=== PATIENT | male | born 1975 | race Caucasian/White ===

== ENCOUNTER 2023-08-31 12:02 | Inpatient (IN) | payer BC, SELFPAY ==
[2023-08-31] VITALS (8 sets, daily range): BP systolic 96–133; BP diastolic 52–79; BMI 31.0
[2023-08-31] MEDS: NSS 1000 IV ×3 (09:36→17:36)
--- NOTE | 2023-08-31 09:38 | ED.GENMED ---
History of Present Illness
General
Chief Complaint: Abdominal Symptoms
Source: patient
Exam Limitations: none
Time Seen by Provider: 08/31/23 09:05
Nursing documentation reviewed up to this point in time: agreed with
Travel History
Have you had any contact with someone who has COVID-19?: No
Do you have any symptoms of coronavirus? Fever > 100 degrees, chills, cough, shortness of breath, sore throat, loss of taste or smell, muscle aches, or headache?: No
History of Present Illness
History of Present Illness:
48 yo male presents to the emergency department c/o n/v/d. He has a history adrenal insufficiency, and has been hospitalized for similar in the past. He has not been able to hold down his medications.
Past History
Past History
ED Past Medical History: Hypothyroidism, Other (Medhat's disease ) and Other (Sleep apnea)
ED Past Surgical History: Orthopedic (Shoulder, foot)
Social History
Tobacco: Non-smoker
Alcohol: Occasional
Drug: None
Personal:
Living: with family
Employment: Employed
Family History
Family History: Hypertension
Review of Systems
Review of Systems
Allergies reviewed?: Yes
All Other Systems: Not applicable
Constitutional: Reports no symptoms
EENT: Reports no symptoms
Respiratory: Reports no symptoms
Cardiac: Reports no symptoms
ABD/GI: Reports nausea, vomiting and diarrhea; Denies abdominal pain
: Reports no symptoms
Musculoskeletal: Reports no symptoms
Skin: Reports no symptoms
Neurological: Reports no symptoms
Endocrine: Reports no symptoms
Hematologic/Lymphatic: Reports no symptoms
Psychiatric: Reports no symptoms
Phy Exam
Physical Exam
Physical Exam:
Physical Exam
General: Afebrile, appears uncomfortable
Neck: supple. no meningeal signs. normal posterior pharynx
Heart: s1/s2 regular rate and rhythm, no murmur. equal radial
pulses.
HEENT: Pupils equal round reactive to light, EOMI
Lungs: no acute respiratory distress. clear bilaterally
Abdomen: normal bowel sounds. not tender. no CVAT
Neuro: alert and oriented. no focal neurological deficits cranial nerves II through XII intact
Skin: no rash
Psychiatric: well kept. interactive and cooperative
Extremities: no edema. no calf tenderness. negative homans. good distal pulses
Course
Orders/Labs/Results
Orders:
Orders
08/31/23 09:25
0.9% Sodium Chloride 1000 ml [Nss] 1,000 ml IV BOLUS
08/31/23 09:34
Complete Blood Count/With Diff Urgent
Comprehensive Metabolic Panel Urgent
Cortisol, Random Urgent
Lipase Urgent
08/31/23 09:36
Hydrocortisone Sod Succinate [Solu-Cortef] 100 mg IV NOW STA
Ondansetron Injectable [Zofran] 4 mg IV NOW STA
08/31/23 10:26
STOOL [C difficile Antigen & Toxins] Urgent
BROOKE Source: Feces/Stool
Specimen Description:
Stool Culture Urgent
BROOKE Source: Feces/Stool
Specimen Description:
Abnormal Lab Results
08/31/23
09:34
MCH 31.4 H pg
(27.0-31.0)
Abs Immat Gran (auto) 0.1 H 10^3/uL
(0-0.05)
Absolute Lymphs (auto) 0.9 L 10^3/uL
(1.2-3.4)
Immature Gran % 1.3 H %
(0-0.5)
Neutrophils % 80.3 H %
(42.2-75.2)
Lymphocytes % 11.5 L %
(20.5-51.1)
Total Bilirubin 1.5 H mg/dl
(0.2-1.3)
08/31/23 09:34
08/31/23 09:34
Vital Signs
Initial and Last Documented VS:
Initial Vital Signs
Temp Pulse Resp BP Pulse Ox
98.1 F 74 18 133/79 100
08/31/23 08:46 08/31/23 08:46 08/31/23 08:46 08/31/23 08:46 08/31/23 08:46
Last Documented Vital Signs
Temp Pulse Resp BP Pulse Ox
98.1 F 83 18 110/68 98
08/31/23 08:46 08/31/23 10:29 08/31/23 10:29 08/31/23 10:29 08/31/23 10:29
MDM/Problems Addressed
Differential Diagnosis Includes:
Adrenal insufficiency, hypovolemia
MDM/Problems Addressed:
48-year-old male with adrenal insufficiency, hypovolemia. Normal saline and 100 mg of hydrocortisone given. Will admit for IV fluids and IV hydrocortisone. Patient will require admission until he is able to tolerate his own oral medication.
Chronic conditions affecting care:
Adrenal insufficiency
Acute Exacerbation and/or Progression of Chronic Illness:
Adrenal insufficiency
*Pulse Oximetry
Patient hypoxic: no
*EKG
Interpreted by ED Provider?: NA
*Qa Specialist Interpretation
Rate: Qa Specialist- N/A
*Critical Care Note
Total Time (30-74mins, 75-104mins- exclusive of procedures): Not Applicable
Data Reviewed
Review of Other/Old Records Reveals: Records (Prior admission in 2020 for nausea vomiting diarrhea and adrenal insufficiency)
Source: records
Patient Management
Social determinants of health affecting care: Living situation
Discussion with other providers: Hospitalist
Escalation/DeEscalation of care consider admission/obs:
Admit indicated
ED Attending Note
-
Portions of this chart may have been created with voice recognition software.� Occasional wrong word or��sound alike� substitutions may have occurred due to the inherent limitations of voice recognition software.
Discharge Plan
Departure
Patient Disposition: Admit
Date of Disposition: 08/31/23
Time of Disposition: 10:30
Admit to: Telemetry
Presentation/result/management discussed w/ accepting MD/DO: Hospitalist
Patient with high blood pressure during this ER visit?: Yes
Discharge Problem:
Nausea vomiting and diarrhea, Adrenal insufficiency
Prescriptions:
No Action
levothyroxine 175 MCG tablet
175 mcg PO DAILY
fludrocortisone 0.1 MG tablet
0.1 mg PO BID
calcium polycarbophil [Fiber-Tabs] 625 MG tablet
3,900 mg PO DAILY
prednisone 5 MG tablet
12.5 mg PO QPM
prednisone 5 MG tablet
5 mg PO DAILY
pregabalin 75 MG capsule
75 mg PO BID
Patient Comments:
05/25/2021: last filled 05/12/21, 60 tabs for 30 days from [facility]
Referrals:
Poli Larose MD [Family Provider] -
Interventions
Interventions:
*Risk Screen - Suicide Last Done: 08/31/23 09:34
*General Assessment Last Done: 08/31/23 09:34
*Neglect/Abuse Screening Last Done: 08/31/23 09:34
*ED COVID-19 Vaccine History Last Done: 08/31/23 09:34
VB-Pvaqlp-Eivvttncjb Assessment Last Done: 08/31/23 09:34
[2023-08-31] MEDS: ZOFRAN 4 MG IV (09:41)
[2023-08-31] MEDS: SOLU-CORTEF 100 MG IV ×3 (09:41→23:01)
[2023-08-31 09:47] LABS: % Basophils 0.4 % (0-2); % Eosinophils 1.1 % (0-6); % Immature Granulocytes 1.3 % (0-0.5); % Lymphocytes 11.5 % (20.5-51.1); % Monocytes 5.4 % (1.7-9.3); % Neutrophils 80.3 % (42.2-75.2); Absolute Eosinophils 0.1 10^3/uL (0-0.7); Absolute Immature Granulocytes 0.1 10^3/uL (0-0.05); Absolute Lymphocytes 0.9 10^3/uL (1.2-3.4); Absolute Monocytes 0.4 10^3/uL (0.1-0.6); Absolute Neutrophils 6.4 10^3/uL (1.4-6.5); Hematocrit 44.3 % (39.0-52.0); Hemoglobin 15.9 g/dL (13.0-18.0); Mean Corp Hgb Conc. 35.9 g/dL (33.0-37.0); Mean Corpuscular Hgb 31.4 pg (27.0-31.0); Mean Corpuscular Volume 87.4 fL (80.0-94.0); Mean Platelet Volume 9.3 fL (7.4-10.4); Nucleated Red Blood Cells % 0 % (-); Platelet Count 190 10^3/uL (130-400); Red Blood Cell Count 5.07 10^6/uL (4.70-6.10); Red Cell Dist. Width 12.8 % (11.5-14.5)
[2023-08-31 10:00] LABS: ALT (SGPT) 46 U/L (0-50); AST (SGOT) 44 U/L (17-59); Albumin 4.8 g/dl (3.5-5.0); Alkaline Phosphatase 83 U/L (38-126); Blood Urea Nitrogen 17 mg/dl (9-20); Calcium 9.2 mg/dl (8.4-10.2); Carbon Dioxide 23 mmol/L (22-30); Chloride 104 mmol/L (98-107); Estimated Creatinine Clearance 101 ml/min; Glucose 80 mg/dl (70-99); Lipase 59 U/L (23-300); Potassium 4.6 mmol/L (3.5-5.1); Sodium 135 mmol/L (135-145); Total Bilirubin 1.5 mg/dl (0.2-1.3); Total Protein 7.6 g/dl (6.3-8.2); eGFR > 60.00
[2023-08-31 10:29] LABS: Cortisol, Random 0.8 ug/dl
--- NOTE | 2023-08-31 11:29 | HPS.HSE ---
Family Physician
-
Family Physician: Poli Larose
Chief Complaint
-
This is a 48-year-old male developed intractable nausea vomiting and diarrhea in the last 12 hours no known contacts
History of Present Illness
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
diarrhea describing chills but does not know if he has a fever. He has been unable to take any of his medications including his steroid management and his thyroid meds. He is on maintenance prednisone twice a day along with levothyroxine and
fludrocortisone uses nightly CPAP for sleep apnea and had seizures prior to his diagnosis of sleep apnea and none since.
Medical History
Past Medical History
Past Medical History: Reports Hypothyroidism
Additional Past Medical History:
Nash's disease
Past Surgical History: Reports None
Social History
Unable to obtain full social history at this time due to: Dementia
Tobacco: Non-smoker
Alcohol: Occasional
Drug: None
Personal:
Living: With Family
Family History
Family History: Not pertinent
Allergies / Home Medications
Allergies reflects when Allergies were last updated in [employer].
Home Medications with original date entered in [employer]
Allergy/Medication List:
Allergies
Allergy/AdvReac Type Severity Reaction Status Date / Time
bee Allergy Unknown Uncoded 05/25/21 06:15
Home Medications
fludrocortisone 0.1 mg tablet 0.1 mg PO DAILY INFLAMMATION 11/13/09
calcium polycarbophil 625 mg tablet (Fiber-Tabs) 3,125 mg PO DAILY Supplement 09/23/18
prednisone 5 mg tablet 2.5 mg PO HS INFLAMMATION 05/25/21
prednisone 5 mg tablet 5 mg PO DAILY INFLAMMATION 05/25/21
levothyroxine 200 mcg tablet 200 mcg PO DAILY Thyroid 08/31/23
Review of Systems
-
History Source: Patient
A 12 point ROS was completed and negative except as noted: Yes
Constitutional: Reports See HPI
EENT: Reports See HPI
Respiratory: Reports See HPI
Physical Exam
Vital Signs
Vital Signs
Temp Pulse Resp BP Pulse Ox
98.1 F 86 18 107/64 96
08/31/23 08:46 08/31/23 11:15 08/31/23 11:15 08/31/23 11:15 08/31/23 11:15
Physical Exam
General: Well Developed
HEENT: NormoCephalic
Respiratory: Clear
Cardiac: S1/S2
GI: Soft
Skin: Warm
Neuro: Awake, Alert and Oriented
Psych: Calm
Laboratory Results
-
08/31/23 09:34
08/31/23 09:34
Laboratory Results
Total Bilirubin 1.5 mg/dl (0.2-1.3) H 08/31/23 09:34
AST 44 U/L (17-59) 08/31/23 09:34
ALT 46 U/L (0-50) 08/31/23 09:34
Alkaline Phosphatase 83 U/L (38-126) 08/31/23 09:34
Lipase 59 U/L (23-300) 08/31/23 09:34
Data Reviewed
-
Critical Care Time (in minutes): 56
Lab Data: Labs Reviewed by me (0 cortisol was 0.8 random/TSH 0.13 last measured July 07/normal white count but with left shift)
Impression/Plan
-
IMPRESSION:
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
diarrhea describing chills but does not know if he has a fever. He has been unable to take any of his medications including his steroid management and his thyroid meds. He is on maintenance prednisone twice a day along with levothyroxine and
fludrocortisone uses nightly CPAP for sleep apnea and had seizures prior to his diagnosis of sleep apnea and none since.
Acute gastroenteritis
-Presumptive viral origin
-Check norovirus and stool cultures
-Check for influenza
-Hydrate with IV fluids
History of Nash's disease
-Treat as an adrenal crisis and placed on hydrocortisone 100 mg every 8 and titrate
-Once stabilized resume prior dosing of prednisone 5 mg in a.m. and 2.5 nightly plus fludrocortisone 0.1, levothyroxine
-BP and heart rate are stable
-Vigorous hydration
-Monitor electrolytes closely
Hypothyroidism
-See if she can tolerate oral levothyroxine in next 24 hours if not placed on IV equivalent
-Check TSH had been suppressed back in June of this year
Prior history of sleep apnea
-On CPAP nightly use own
DVT prophylaxis Lovenox
Full CODE STATUS
[2023-08-31] MEDS: TYLENOL 650 MG PO ×3 (17:36→23:00)
--- NOTE | 2023-08-31 17:59 | PTCARENOTE ---
pt admitted to for this nurse at 1730. pt is aaox3, admission VSS, and is receiving IVF @ 150ml/hr through his R hand due to n/v/d episode that started this AM for this patient at home. pt is independent in the room and was given ear plugs incase
of noise. pt was oriented to call light and phone and is currently on a clear liquid diet at this time.
[2023-09-01] MEDS: NSS 1000 IV ×2 (00:52→07:48)
[2023-09-01] MEDS: TYLENOL PO ×2 (04:59→23:20)
[2023-09-01 06:11] LABS: Hematocrit 41.3 % (39.0-52.0); Mean Corp Hgb Conc. 33.9 g/dL (33.0-37.0); Mean Corpuscular Hgb 30.5 pg (27.0-31.0); Mean Platelet Volume 10.2 fL (7.4-10.4); Platelet Count 188 10^3/uL (130-400); Red Blood Cell Count 4.59 10^6/uL (4.70-6.10); Red Cell Dist. Width 12.5 % (11.5-14.5)
[2023-09-01 06:36] LABS: Blood Urea Nitrogen 14 mg/dl (9-20); Calcium 8.5 mg/dl (8.4-10.2); Carbon Dioxide 23 mmol/L (22-30); Chloride 103 mmol/L (98-107); Estimated Creatinine Clearance > 125 ml/min; Glucose 126 mg/dl (70-99); Potassium 4.6 mmol/L (3.5-5.1); Sodium 135 mmol/L (135-145); eGFR > 60.00
[2023-09-01] MEDS: SYNTHROID 200 MCG PO (06:39)
[2023-09-01 07:06] LABS: TSH 0.09 uIU/ml (0.47-4.68)
--- NOTE | 2023-09-01 07:48 | W.PN.HOSP.TC ---
Today's Communication/Plan
-
Will titrate hydrocortisone down to 50 every 8
Reduce IV fluid
Placed on brat diet
Project discharge plan for prednisone taper tomorrow
Assessment / Plan
Assessment / Plan
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
diarrhea describing chills but does not know if he has a fever.� He has been unable to take any of his medications including his steroid management and his thyroid meds.� He is on maintenance prednisone twice a day along with levothyroxine and
fludrocortisone uses nightly CPAP for sleep apnea and had seizures prior to his diagnosis of sleep apnea and none since.
Acute gastroenteritis
-Presumptive viral origin
-Check norovirus and stool cultures
-Check for influenza
-Hydrate with IV fluids
History of Medhat's disease
-Treat as an adrenal crisis and placed on hydrocortisone 100 mg every 8 and titrate
-Once stabilized resume prior dosing of prednisone 5 mg in a.m. and 2.5 nightly plus fludrocortisone 0.1, levothyroxine
-BP and heart rate are stable
-Vigorous hydration
-Monitor electrolytes closely
Hypothyroidism
-See if she can tolerate oral levothyroxine in next 24 hours if not placed on IV equivalent
-Check TSH had been suppressed back in June of this year
Prior history of sleep apnea
-On CPAP nightly use own
DVT prophylaxis Lovenox
Full CODE STATUS
Will titrate hydrocortisone down to 50 every 8
Reduce IV fluid
Placed on brat diet
Project discharge plan for prednisone taper tomorrow
Anticipated Discharge: Within 24 hours
Subjective/Interval History
-
Date of Service: September 01, 2023
Patient feeling somewhat better no nausea or vomiting overnight no diarrhea once to try some solid food does feel fatigued
Objective Data
-
Labs:
Laboratory Results
09/01/23
05:22
WBC 6.0
Hgb 14.0
Hct 41.3
Plt Count 188
Sodium 135
Potassium 4.6
Chloride 103
Carbon Dioxide 23
BUN 14
Creatinine 0.8
Glucose 126 H
Calcium 8.5
Vital Signs:
Vital Signs
Temp Pulse Resp BP Pulse Ox
97.9 F 54 16 105/69 97
08/31/23 23:17 08/31/23 23:17 08/31/23 23:17 08/31/23 23:17 08/31/23 23:17
I&O
08/31/23 09/01/23 09/02/23
06:59 06:59 06:59
Intake Total 3540 / 3540
Balance 3540 / 3540
Review of Systems
-
History Source: Patient
Constitutional: Reports Fatigue and Weakness
Abdomen/GI: Denies Nausea, Vomiting or Diarrhea
Physical Exam
-
General: Well Developed
HEENT: Normocephalic
Respiratory: Clear to Auscultation
Cardiac: Regular Rhythm
GI: Soft, Nontender and Nondistended
Psych: Calm
Data Reviewed
-
Total Time Spent with Patient (in minutes): 56
Labs: Labs Reviewed by me
[2023-09-01 07:49] VITALS: BP 135/77
[2023-09-01] MEDS: TYLENOL 650 MG PO ×4 (07:50→20:13)
[2023-09-01] MEDS: SOLU-CORTEF 50 MG IV ×3 (08:51→23:19)
--- NOTE | 2023-09-01 12:00 | CM ---
Reviewed the chart notes and spoke with the patient at the bedside. The patient resides with his spouse in a two story home with five steps to enter. The patient reports only DME is a CPAP machine. The patient reports no VN or SNF in the past.
The patient confirmed his pharmacy of choice is [facility] [address] [facility]. CM continues to be available to patient/family and is monitoring medical plan for needs at discharge.
Plan: Discharge to home when medically stable. No anticipated needs identified at this time.
[2023-09-01 15:14] VITALS: BP 122/80
[2023-09-01] MEDS: SOLU-CORTEF IV (23:17)
[2023-09-01 23:26] VITALS: BP 117/69
[2023-09-02] MEDS: TYLENOL PO ×2 (04:43→07:54)
[2023-09-02 06:40] LABS: Hematocrit 39.1 % (39.0-52.0); Hemoglobin 13.4 g/dL (13.0-18.0); Mean Corp Hgb Conc. 34.3 g/dL (33.0-37.0); Mean Corpuscular Hgb 30.7 pg (27.0-31.0); Mean Corpuscular Volume 89.7 fL (80.0-94.0); Platelet Count 189 10^3/uL (130-400); Red Blood Cell Count 4.36 10^6/uL (4.70-6.10); Red Cell Dist. Width 12.4 % (11.5-14.5); White Blood Cell Count 6.7 10^3/uL (4.8-10.8)
[2023-09-02] MEDS: SYNTHROID 200 MCG PO (06:44)
[2023-09-02 07:12] LABS: Blood Urea Nitrogen 8 mg/dl (9-20); Calcium 8.3 mg/dl (8.4-10.2); Carbon Dioxide 21 mmol/L (22-30); Chloride 109 mmol/L (98-107); Estimated Creatinine Clearance > 125 ml/min; Glucose 108 mg/dl (70-99); Sodium 136 mmol/L (135-145); eGFR > 60.00
--- NOTE | 2023-09-02 07:13 | W.DS.TRANS ---
Addendum entered and electronically signed by Louis Small MD 09/02/23 10:43:
After patient's discharge we received notice from the lab that his PCR for norovirus tested positive/I have no number to contact the patient himself his primary contact which is listed as a spouse just Bringing and could not leave a message I left a
message via voicemail to his brother with hand hygiene precautions to be taken and the lack of treatment offered and to not prepare foods to others unless a period of at least 10 days passes.
Original Note:
DC Summary - Marine [employer]
-
Discharge Instructions:
Discharge Diagnosis/Procedures Acute gastroenteritis
Adrenal insufficiency
Hypothyroidism
Diet As tolerated
Activity No restrictions
Instructions:
Stand-Alone Forms:
Changes to Home Medications: Yes
Discharge Medications:
DC Medications w/original date entered in [employer]
fludrocortisone 0.1 mg tablet 0.1 mg PO DAILY INFLAMMATION 11/13/09
calcium polycarbophil 625 mg tablet (Fiber-Tabs) 3,125 mg PO DAILY Supplement 09/23/18
prednisone 5 mg tablet 2.5 mg PO HS INFLAMMATION 05/25/21
levothyroxine 200 mcg tablet 200 mcg PO DAILY Thyroid 08/31/23
prednisone 10 mg tablet 30 mg PO DAILY Anti-inflammatory #14 tabs 09/02/23
prednisone 5 mg tablet 5 mg PO DAILY INFLAMMATION #0 tabs 09/02/23
Home Medication Changes
Prednisone taper as outlined
Pending Results: No
Total time spent discharging patient (in min): 39
[2023-09-02 07:52] VITALS: BP 114/71
[2023-09-02] MEDS: DELTASONE 30 MG PO (07:54)
--- NOTE | 2023-09-02 07:56 | PTCARENOTE ---
pt decided that since he is still feeling not back to his 'normal self' that he did not want to get the flu shot at this time despite asking for the potential to receive it during his admission. proper decline is charted in the mar. pt to be
discharged this AM after diet toleration.
--- NOTE | 2023-09-02 11:32 | W.DCSUMMARY ---
Discharge Summary
Discharge Data
Date of Admission: 08/31/23
Date of Discharge: 09/02/23
-
Pending Results: No
Hospital Course
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
diarrhea describing chills but does not know if he has a fever.� He has been unable to take any of his medications including his steroid management and his thyroid meds.� He is on maintenance prednisone twice a day along with levothyroxine and
fludrocortisone uses nightly CPAP for sleep apnea and had seizures prior to his diagnosis of sleep apnea and none since.
Patient was admitted to the medical surgical floor and placed on vigorous IV fluids placed on stress dose hydrocortisone at 100 mg every 8 hours for 24 hours and underwent assessments for stools culture and PCR for norovirus.
Gastrointestinal symptoms including nausea vomiting and diarrhea relented overnight he was slowly advanced on his diet hydrocortisone was reduced to 50 mg every 8 he has tolerated a full liquid diet and brat diet last 24 hours and graduated to a
regular diet on date of his discharge
Symptomatically is improved significantly without evidence of any heat hemodynamic compromise hypotension or signs of adrenal crisis.
A discharge plan for a prednisone taper was given to him here he states he has enough prednisone at home to undertake the tapering schedule
Of note after his discharge we received notice from the lab that his norovirus PCR came back positive
I tried reaching out to the patient's family including spouse which there was no answer and kept ringing to leave message and left finally a message with his brother with details in regards to hand hygiene ongoing for the next 10 to 14 days as the
patient could still be contagious although there is no treatment for norovirus other than supportive. Also left message that he should not prepare food for others in this time period.
Discharge Plan
-
Patient Disposition: Home (Routine Discharge)
Discharge Diagnosis/Procedures: Acute gastroenteritis secondary to norovirus
Adrenal insufficiency
Hypothyroidism
Diet: As tolerated
Activity: No restrictions
Referrals:
Poli Larose MD [Family Provider] - in less than 1 week
Additional Discharge Medication Instructions: Take prednisone 30 mg for 2 days then 20 mg for 2 days then 10 mg then back to her prior schedule
Prescriptions:
New
prednisone 10 mg Tablet
30 mg PO DAILY Qty: 14 0RF
Rx Instructions:
Take steroid taper of 30 mg for 2 days then 20 mg for 2 days then 10 mg for 2 days then back to your usual schedule
Continued
fludrocortisone 0.1 MG tablet
0.1 mg PO DAILY
Fiber-Tabs 625 MG tablet
3,125 mg PO DAILY
prednisone 5 MG tablet
2.5 mg PO HS
levothyroxine 200 mcg Tablet
200 mcg PO DAILY
prednisone 5 MG tablet
5 mg PO DAILY Qty: 0 0RF
Rx Instructions:
Take 30 mg prednisone daily for 2 days, 20 mg for 2 days then 10 mg for 2 days then back to your schedule
Discharge Orders:
Discharge Patient (As Directed); Ordered 09/02/23
Ordered By: Louis Small
Discharge Date and Time
Discharge Date/Time: 09/02/23 09:19
--- NOTE | 2023-09-02 11:46 | CM ---
Chart reviewed home no needs.
Plan; Home no needs.
== END 2023-09-02 09:19 | disposition home or self-care (01) | DRG 644 ==
LOC: 2 NORTH 12:02
PROVIDERS: ADMITTING PHYSICIAN Internal Medicine; EMERGENCY PHYSICIAN Emergency Medicine; FAMILY PHYSICIAN Family Medicine
PROC: 5A09357 Assistance with Respiratory Ventilation, Less than 24 Consecutive Hours, Continuous Positive Airway Pressure (ICD-10-PCS; 2023-08-31)
DX: E27.2 Addisonian crisis (principal); A08.11 Acute gastroenteropathy due to Norwalk agent; E27.1 Primary adrenocortical insufficiency; E03.9 Hypothyroidism, unspecified; E86.1 Hypovolemia; G47.30 Sleep apnea, unspecified; Z82.49 Family history of ischemic heart disease and other diseases of the circulatory system; Z79.890 Hormone replacement therapy; Z79.52 Long term (current) use of systemic steroids
CPT/HCPCS: 80048; 80053; 82533; 83690; 84443; 85025; 85027; 87045; 87046; 87324; 87427; 87449; 87798; 90686; 96361; 96374; 96375; 99285; G0008

== ENCOUNTER → 2023-12-28 08:27 | Outpatient (REF) | payer BC, SELFPAY ==
[2023-12-28 12:04] LABS: ALT (SGPT) 34 U/L (0-50); AST (SGOT) 34 U/L (17-59); Albumin 4.7 g/dl (3.5-5.0); Alkaline Phosphatase 78 U/L (38-126); Blood Urea Nitrogen 11 mg/dl (9-20); Calcium 9.7 mg/dl (8.4-10.2); Carbon Dioxide 21 mmol/L (22-30); Chloride 100 mmol/L (98-107); Glucose 82 mg/dl (70-99); Potassium 4.7 mmol/L (3.5-5.1); Sodium 132 mmol/L (135-145); Total Protein 7.3 g/dl (6.3-8.2); eGFR > 60.00
[2023-12-28 12:34] LABS: TSH 1.42 uIU/ml (0.47-4.68)
== END ==
LOC: HWLAB 08:27
PROVIDERS: ATTENDING PHYSICIAN Internal Medicine Endocrinology, Diabetes & Metabolism; FAMILY PHYSICIAN Family Medicine
DX: E27.1 Primary adrenocortical insufficiency (principal)
CPT/HCPCS: 36415; 80053; 84443

== ENCOUNTER → 2024-07-07 08:56 | Outpatient (REF) | payer BC, SELFPAY ==
[2024-07-07 12:26] LABS: ALT (SGPT) 38 U/L (0-50); AST (SGOT) 33 U/L (17-59); Albumin 4.5 g/dl (3.5-5.0); Alkaline Phosphatase 76 U/L (38-126); Blood Urea Nitrogen 13 mg/dl (9-20); Calcium 9.4 mg/dl (8.4-10.2); Carbon Dioxide 26 mmol/L (22-30); Chloride 98 mmol/L (98-107); Glucose 90 mg/dl (70-99); Potassium 4.5 mmol/L (3.5-5.1); Sodium 132 mmol/L (135-145); Total Bilirubin 0.8 mg/dl (0.2-1.3); Total Protein 7.1 g/dl (6.3-8.2); eGFR > 60.00
[2024-07-09 23:42] LABS: IgA 215 mg/dl (70-400)
[2024-07-10 07:40] LABS: tTG IgA Antibody <1.02 FLU (0.00-4.99)
== END ==
LOC: HWLAB 08:56
PROVIDERS: ATTENDING PHYSICIAN Internal Medicine Endocrinology, Diabetes & Metabolism; FAMILY PHYSICIAN Family Medicine
DX: E27.1 Primary adrenocortical insufficiency (principal); R19.7 Diarrhea, unspecified
CPT/HCPCS: 36415; 80053; 82784; 83516; 84443; 86231

== ENCOUNTER → 2024-07-21 09:09 | Outpatient (REF) | payer BC, SELFPAY ==
[2024-07-21 12:30] LABS: Erythrocyte Sed Rate 10 mm/hour (0-20)
[2024-07-21 12:40] LABS: Uric Acid 5.6 mg/dl (3.5-8.5)
[2024-07-21 12:42] LABS: C-Reactive Protein < 5.00 mg/L (0.0-10.00)
[2024-07-21 14:57] LABS: Rheumatoid Agglutinin Less Than 10 IU (<10 IU)
[2024-07-24 02:09] LABS: ANA, IgG Reflex to HEp-2 None Detected (None Detected)
[2024-07-24 02:25] LABS: CCP Antibody IgG/IgA 8 Units (0-19)
== END ==
LOC: HWRAD 09:09
PROVIDERS: ATTENDING PHYSICIAN Family Medicine
DX: M19.90 Unspecified osteoarthritis, unspecified site (principal)
CPT/HCPCS: 36415; 73130; 84550; 85652; 86038; 86140; 86200; 86430

== ENCOUNTER → 2025-03-20 07:16 | Outpatient (REF) | payer BC, SELFPAY ==
[2025-03-20 10:13] LABS: ALT (SGPT) 29 U/L (0-50); AST (SGOT) 25 U/L (17-59); Albumin 4.5 g/dl (3.5-5.0); Alkaline Phosphatase 70 U/L (38-126); Blood Urea Nitrogen 16 mg/dl (9-20); Calcium 9.3 mg/dl (8.4-10.2); Carbon Dioxide 23 mmol/L (22-30); Chloride 104 mmol/L (98-107); Glucose 94 mg/dl (70-99); Potassium 4.3 mmol/L (3.5-5.1); Sodium 134 mmol/L (135-145); Total Protein 7.2 g/dl (6.3-8.2); eGFR > 60.00
[2025-03-20 10:43] LABS: TSH 0.96 uIU/ml (0.47-4.68)
[2025-03-21 15:53] LABS: tTG IgA Antibody 6.0 EU/ml (0-19); tTG IgG Antibody 15.7 EU/ml (0-19)
== END ==
LOC: HWLAB 07:16
PROVIDERS: ATTENDING PHYSICIAN Internal Medicine Endocrinology, Diabetes & Metabolism; FAMILY PHYSICIAN Family Medicine
DX: E27.1 Primary adrenocortical insufficiency (principal)
CPT/HCPCS: 36415; 80053; 82784; 83516; 84443; 86231